=== PATIENT | female | born 1950 | race Caucasian/White ===

== ENCOUNTER 2016-11-20 12:06 | Emergency (ER) | payer OTHER ==
[~2016-11-20] VITALS: Ht 170.2 cm; Wt 113.5 kg
[~2016-11-20 12:06] MED LIST: CALCIO DEL MAR500 MG PO; CATAPRES0.3 MG PO; CLARITIN10 M3 PO; FLEXERIL10 MG PO; LASIX40 MG PO; LEVEMIR100 UNIT/2 SC; LIPITOR40 MG PO; LOPRESSOR50 MG PO; NOVOLOG 10100 UNITS/ SC; PROCARDIA20 MG PO; PROTONIX40 MG PO; SYNTHROID100 MCG PO
[2016-11-20 14:31] LABS: HEMATOCRIT 34.9 % (36.0-46.0); MCV 84.9 FL (83-99); MEAN PLAT.VOLUME 11.4 uM^3 (9.5-12.4); PLATELET COUNT 109 K/uL (156-360); RBC DIS.WIDTH-CV 15.2 % (11.8-14.6); RBC DIS.WIDTH-SD 46.1 % (39-53); RED BLOOD COUNT 4.11 M/uL (3.80-5.20)
[2016-11-20 14:40] LABS: CHLORIDE 105 mEq/L (99-109); POTASSIUM 4.6 mEq/L (3.7-5.4); SODIUM 139 mEq/L (136-147)
[2016-11-20 14:42] LABS: GLUCOSE 218 mg/dL (70-99)
[2016-11-20 14:43] LABS: ANION GAP 11 MEQ/L (2-14)
[2016-11-20 14:44] LABS: TOTAL BILIRUBIN 0.7 mg/dL (0.0-1.0)
[2016-11-20 14:46] LABS: ALKALINE PHOSPHATASE 165 IU/L (3-129); GFR ESTIMATE (CALCULATED) 37 mL/min/
[2016-11-20 14:47] LABS: UREA NITROGEN (BUN) 28 mg/dL (9-23)
[2016-11-20 14:59] LABS: INTER. NORMALIZED RATIO 1.1
[2016-11-20 17:52] VITALS: BP 148/84
== END 2016-11-20 18:00 | disposition home or self-care (01) ==
LOC: EME 12:06
DX: I96 Gangrene, not elsewhere classified (principal); S91.105D Unspecified open wound of left lesser toe(s) without damage to nail, subsequent encounter; W45.8XXD Other foreign body or object entering through skin, subsequent encounter; E11.65 Type 2 diabetes mellitus with hyperglycemia; N28.9 Disorder of kidney and ureter, unspecified; M85.80 Other specified disorders of bone density and structure, unspecified site; Z91.14 Patient's other noncompliance with medication regimen; Z79.4 Long term (current) use of insulin; I10 Essential (primary) hypertension; E78.5 Hyperlipidemia, unspecified; E03.9 Hypothyroidism, unspecified
CPT/HCPCS: 73630; 80053; 85027; 85610; 85730; 99281; 99285; J7030

== ENCOUNTER 2016-12-06 08:28 | Day surgery (SDC) | payer OTHER ==
[~2016-12-06] VITALS: Ht 170.2 cm; Wt 106.6 kg
[~2016-12-06 08:28] MED LIST changes: +APRESOLINE50 MG PO; +CALCIUM 500 +1 EACH PO; +K-DUR20 MEQ PO; +KEFLEX500 MG PO; +LO-DOSE ASPIRIN81 M2 PO; +NEURONTIN300 MG PO; +SYNTHROID150 MCG PO
[2016-12-06] MEDS ORDERED: KEFLEX500 MG PO (08:55)
[2016-12-06 09:02] LABS: POINT-OF-CARE METER ID UU13113694
[2016-12-06 09:10] VITALS: BP 130/59
[2016-12-06 11:41] LABS: POINT-OF-CARE METER ID UU13113675
[2016-12-06 12:27] VITALS: BP 128/69
[2016-12-06 16:00] VITALS: BP 149/63
[2016-12-06 20:16] VITALS: BP 133/66
[2016-12-06 21:52] LABS: POINT-OF-CARE METER ID UU14162508
[2016-12-07 00:19] VITALS: BP 127/65
[2016-12-07 03:46] VITALS: BP 125/84
[2016-12-07 06:29] LABS: POINT-OF-CARE METER ID UU14162508
[2016-12-07 08:30] VITALS: BP 126/57
[2016-12-07 11:20] LABS: POINT-OF-CARE METER ID UU14162508
== END 2016-12-07 11:29 | disposition home or self-care (01) ==
LOC: SDC 08:28 → 2SOUTH 11:10 → 2EAST 11:10 → 2SOUTH 11:10 → 2EAST 12:20 → SDC 13:15 → 2EAST 12-07 11:29
PROVIDERS: Surgery
PROC: 0Y6N0Z6 Detachment at Left Foot, Complete 3rd Ray, Open Approach (ICD-10-PCS; principal; 2016-12-06)
DX: E11.52 Type 2 diabetes mellitus with diabetic peripheral angiopathy with gangrene (principal); E11.621 Type 2 diabetes mellitus with foot ulcer; L97.529 Non-pressure chronic ulcer of other part of left foot with unspecified severity; I96 Gangrene, not elsewhere classified; E11.40 Type 2 diabetes mellitus with diabetic neuropathy, unspecified; K21.9 Gastro-esophageal reflux disease without esophagitis; E78.00 Pure hypercholesterolemia, unspecified; E03.9 Hypothyroidism, unspecified; M32.9 Systemic lupus erythematosus, unspecified; G47.30 Sleep apnea, unspecified; I10 Essential (primary) hypertension; Z79.4 Long term (current) use of insulin; Z79.82 Long term (current) use of aspirin; Z80.3 Family history of malignant neoplasm of breast; Z82.49 Family history of ischemic heart disease and other diseases of the circulatory system; Z83.3 Family history of diabetes mellitus; Z84.1 Family history of disorders of kidney and ureter; Z80.8 Family history of malignant neoplasm of other organs or systems; Z82.3 Family history of stroke; Z88.2 Allergy status to sulfonamides
CPT/HCPCS: 82948; 88305; 94799; G0378; J0690; J1815; J2250; J2405; J3010; J7120; S0020

== ENCOUNTER 2017-08-14 17:19 | Inpatient (IN) | payer OTHER ==
[~2017-08-14] VITALS: Ht 170.2 cm; Wt 114.4 kg
[2017-08-14 18:08] LABS: MCH 27.3 PG (29.0-34.0); MCHC 32.4 G/DL (30.0-36.0); MCV 84.1 FL (83-99); PLATELET COUNT 115 K/uL (156-360); RBC DIS.WIDTH-CV 16.2 % (11.8-14.6); RBC DIS.WIDTH-SD 49.8 % (39-53); WHITE BLOOD COUNT 6.3 K/uL (4.1-10.2)
[2017-08-14 18:17] LABS: CHLORIDE 108 mEq/L (99-109); POTASSIUM 3.8 mEq/L (3.7-5.4); SODIUM 142 mEq/L (136-147)
[2017-08-14 18:19] LABS: GLUCOSE 147 mg/dL (70-99)
[2017-08-14 18:23] LABS: CREATININE 1.2 mg/dL (0.6-1.3); GFR ESTIMATE (CALCULATED) 48 mL/min/
[2017-08-14 18:24] LABS: UREA NITROGEN (BUN) 13 mg/dL (9-23)
[2017-08-14 18:28] LABS: TROP-I INTERPRETATION NEGATIVE; TROPONIN-I 0.02 ng/mL (0.0-0.30)
[2017-08-14] MEDS ORDERED: GABAPENTIN300 MG PO (20:13)
[2017-08-14] MEDS ORDERED: NOVOLOG PE100 UNITS/ SC (20:15)
[2017-08-14] MEDS ORDERED: CLONIDINE HCL0.3 MG PO (20:15)
[2017-08-14] MEDS ORDERED: LEVOTHYROXINE150 MCG PO (20:16)
[2017-08-14] MEDS ORDERED: CYCLOBENZAPRINE10 MG PO (20:16)
[2017-08-14] MEDS ORDERED: NIFEDIPINE ER90 MG PO (20:17)
[2017-08-14] MEDS ORDERED: PANTOPRAZOLE SO40 MG PO (20:18)
[2017-08-14] MEDS ORDERED: LEVEMIR FL100 UNIT/1 SC (20:19)
[2017-08-14] MEDS ORDERED: ATORVASTATIN CA40 MG PO (20:19)
[2017-08-14] MEDS ORDERED: METOPROLOL TAR100 MG PO (20:20)
[2017-08-14] MEDS ORDERED: FUROSEMIDE40 MG PO (20:20)
[2017-08-14 21:18] VITALS: BP 146/76
[2017-08-14 23:01] VITALS: BP 164/76
[2017-08-15 03:48] VITALS: BP 140/65; BP 140/656
[2017-08-15 07:25] VITALS: BP 170/73
[2017-08-15 12:04] LABS: HEMOGLOBIN A1c (GLYCOHEMOGLOB) 7.4 % (Below 5.7)
[2017-08-15 16:56] VITALS: BP 149/84
[2017-08-15 19:28] VITALS: BP 141/64
[2017-08-15 23:18] VITALS: BP 154/68
[2017-08-16 03:20] VITALS: BP 141/65
[2017-08-16 06:25] LABS: BASOPHIL (%) 1.1 % (0-1); BASOPHIL COUNT 0.1 K/uL (0-0.1); EOSINOPHIL (%) 3.2 % (0-5); EOSINOPHIL COUNT 0.2 K/uL (0-0.3); HEMATOCRIT 31.1 % (36.0-46.0); IMMATURE GRANULOCYTE (%) 0.6 % (0.0-0.7); LYMPHOCYTE (%) 19.4 % (15-42); LYMPHOCYTE COUNT 0.9 K/uL (1.0-2.8); MCH 26.9 PG (29.0-34.0); MCHC 31.2 G/DL (30.0-36.0); MCV 86.1 FL (83-99); MONOCYTE (%) 9.8 % (3-12); MONOCYTE COUNT 0.5 K/uL (0-0.8); NEUTROPHIL (%) 65.9 % (45-76); NEUTROPHIL COUNT 3.1 K/uL (1.8-6.4); PLATELET COUNT 96 K/uL (156-360); RBC DIS.WIDTH-CV 16.5 % (11.8-14.6); RBC DIS.WIDTH-SD 52.2 % (39-53); RED BLOOD COUNT 3.61 M/uL (3.80-5.20); WHITE BLOOD COUNT 4.7 K/uL (4.1-10.2)
[2017-08-16 06:26] LABS: HEMOGLOBIN 9.7 G/DL (11.9-15.5)
[2017-08-16 06:36] LABS: CHLORIDE 105 MEQ/L (99-109); CREATININE 1.3 MG/DL (0.6-1.3); GFR ESTIMATE (CALCULATED) 44 mL/min/; GLUCOSE 138 mg/dL (70-99); POTASSIUM 3.8 MEQ/L (3.7-5.4); SODIUM 142 MEQ/L (136-147); UREA NITROGEN (BUN) 19 mg/dL (9-23)
[2017-08-16 07:05] VITALS: BP 172/82
[2017-08-16 15:03] VITALS: BP 147/70
[2017-08-16 20:05] VITALS: BP 138/85
[2017-08-17 00:09] VITALS: BP 135/62
[2017-08-17 03:52] VITALS: BP 140/56
[2017-08-17 05:58] LABS: BASOPHIL (%) 0.8 % (0-1); EOSINOPHIL (%) 5.1 % (0-5); EOSINOPHIL COUNT 0.2 K/uL (0-0.3); HEMOGLOBIN 9.5 G/DL (11.9-15.5); IMMATURE GRANULOCYTE (%) 0.3 % (0.0-0.7); LYMPHOCYTE (%) 23.6 % (15-42); LYMPHOCYTE COUNT 0.8 K/uL (1.0-2.8); MCH 27.1 PG (29.0-34.0); MCHC 31.7 G/DL (30.0-36.0); MCV 85.5 FL (83-99); MONOCYTE (%) 10.4 % (3-12); MONOCYTE COUNT 0.4 K/uL (0-0.8); NEUTROPHIL (%) 59.8 % (45-76); NEUTROPHIL COUNT 2.1 K/uL (1.8-6.4); PLATELET COUNT 91 K/uL (156-360); RBC DIS.WIDTH-CV 16.4 % (11.8-14.6); RBC DIS.WIDTH-SD 50.8 % (39-53); RED BLOOD COUNT 3.51 M/uL (3.80-5.20); WHITE BLOOD COUNT 3.6 K/uL (4.1-10.2)
[2017-08-17 06:21] LABS: ALBUMIN 3.1 G/DL (3.2-4.8); ALKALINE PHOSPHATASE 221 IU/L (3-129); ALT (GPT) 22 IU/L (3-49); AST (GOT) 25 IU/L (2-34); CHLORIDE 104 MEQ/L (99-109); CREATININE 1.3 MG/DL (0.6-1.3); GFR ESTIMATE (CALCULATED) 44 mL/min/; POTASSIUM 3.9 MEQ/L (3.7-5.4); SODIUM 142 MEQ/L (136-147); TOTAL BILIRUBIN 0.5 MG/DL (0.0-1.0); TOTAL PROTEIN 6.3 G/DL (6.4-8.3); UREA NITROGEN (BUN) 22 mg/dL (9-23)
[2017-08-17 06:22] LABS: GLUCOSE 92 mg/dL (70-99)
[2017-08-17 07:03] VITALS: BP 131/58
[2017-08-17] MEDS ORDERED: LEVAQUIN500 MG PO (15:18)
[2017-08-17 16:17] VITALS: BP 157/67
[2017-08-17] MEDS ORDERED: AUGMENTIN875 MG PO (16:32)
[2017-08-17] MEDS ORDERED: CEFTIN500 MG PO (16:34)
[2017-08-17] MEDS ORDERED: DOXYCYCLINE HY100 M3 PO (16:34)
== END 2017-08-17 17:40 | disposition home or self-care (01) | DRG 189 ==
LOC: EME 17:19 → 5EAST 19:36 → EDOF 19:36 → ENRESERV 19:44 → 5EAST 21:05
PROVIDERS: Emergency Medicine; Hospitalist; Physician Assistant Medical
DX: J96.01 Acute respiratory failure with hypoxia (principal); I13.0 Hypertensive heart and chronic kidney disease with heart failure and stage 1 through stage 4 chronic kidney disease, or unspecified chronic kidney disease; J15.9 Unspecified bacterial pneumonia; E78.5 Hyperlipidemia, unspecified; E03.9 Hypothyroidism, unspecified; I50.31 Acute diastolic (congestive) heart failure; M34.1 CR(E)ST syndrome; E11.22 Type 2 diabetes mellitus with diabetic chronic kidney disease; L97.529 Non-pressure chronic ulcer of other part of left foot with unspecified severity; G89.29 Other chronic pain; E66.01 Morbid (severe) obesity due to excess calories; E11.621 Type 2 diabetes mellitus with foot ulcer; Z79.4 Long term (current) use of insulin; R19.7 Diarrhea, unspecified; E11.42 Type 2 diabetes mellitus with diabetic polyneuropathy; N18.3 Chronic kidney disease, stage 3 (moderate); Z79.899 Other long term (current) drug therapy; G47.33 Obstructive sleep apnea (adult) (pediatric); Z88.5 Allergy status to narcotic agent; Z88.8 Allergy status to other drugs, medicaments and biological substances; Z88.1 Allergy status to other antibiotic agents; Z91.040 Latex allergy status; Z86.73 Personal history of transient ischemic attack (TIA), and cerebral infarction without residual deficits; Z79.82 Long term (current) use of aspirin; K21.9 Gastro-esophageal reflux disease without esophagitis; M32.9 Systemic lupus erythematosus, unspecified; Z23 Encounter for immunization; R09.89 Other specified symptoms and signs involving the circulatory and respiratory systems; D69.6 Thrombocytopenia, unspecified; Z68.38 Body mass index [BMI] 38.0-38.9, adult; Z90.710 Acquired absence of both cervix and uterus; Z89.422 Acquired absence of other left toe(s); M19.90 Unspecified osteoarthritis, unspecified site; L97.519 Non-pressure chronic ulcer of other part of right foot with unspecified severity; Z82.49 Family history of ischemic heart disease and other diseases of the circulatory system; Z82.3 Family history of stroke
CPT/HCPCS: 71046; 78582; 80048; 80053; 81003; 82948; 83036; 83735; 83880; 84484; 85025; 85027; 85379; 87040; 87502; 90686; 93005; 93306; 94799; 99202; 99281; 99285; A9540; A9567; J0696; J1650; J1815; J1940; J7050